=== PATIENT | female | born 1945 | race Caucasian/White ===

== ENCOUNTER 2017-01-23 12:53 | Emergency (ER) | payer OTHER ==
[~2017-01-23] VITALS: Ht 160 cm; Wt 64.0 kg
[2017-01-23 13:59] VITALS: BP 147/71; PULSE 72; RESP 16; TEMP 98.2; O2SAT 97
[2017-01-23] MEDS ORDERED: ASPI81CH37 CHEW (14:09)
[2017-01-23] MEDS ORDERED: FURO1TAB62 PO (14:09)
[2017-01-23] MEDS ORDERED: SYNT25TA PO (14:09)
[2017-01-23] MEDS ORDERED: ACETAMINOPHEN 325 MG TAB PO ONE (14:15)
[2017-01-23] MEDS ORDERED: IBUPROFEN 800 MG TAB PO ONE (14:30)
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
[2017-01-23 15:40] VITALS: RESP 16
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
[2017-01-23] MEDS ORDERED: CYCL5TAB PO (17:47)
[2017-01-23] MEDS ORDERED: IBUP-232 PO (17:47)
== END 2017-01-23 18:14 | disposition home or self-care (01) ==
LOC: NEPD 12:53
DX: S16.1XXA Strain of muscle, fascia and tendon at neck level, initial encounter (principal); T76.91XA Unspecified adult maltreatment, suspected, initial encounter; V49.49XA Driver injured in collision with other motor vehicles in traffic accident, initial encounter
CPT/HCPCS: 70450; 72125; 99285